=== PATIENT | male | born 1950 | race Caucasian/White ===

== ENCOUNTER 2023-07-23 22:00 | Emergency (ER) | payer OTHER, SELFPAY ==
[2023-07-23 22:02] VITALS: BP 180/107; PULSE 90; RESP 14; TEMP 37.1; O2SAT 96; BMI 26.2
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
--- NOTE | 2023-07-23 22:05 | ECG_ITS ---
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 Measurements Intervals [place] Rate: 86 P: 56 ME: 160 QRS: 48 QRSD: 90 T: 34 QT: 365 QTc: 437 Interpretive Statements SINUS RHYTHM No previous ECG available for comparison Electronically Signed On 07-24-2023 8:30:59 CDT by Jeffery Gorman M.D. [email or web address]
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
[2023-07-23 22:20] LABS: Basophils % 0.1 %; Eosinophils % 0.1 %; Hematocrit 47.4 % (37-53); Lymphocytes # 0.6 10^3/uL (0.8-4.8); Lymphocytes % 4.5 %; Mean Corpuscular HGB Conc 32.1 g/dL (30-55); Mean Corpuscular Hemoglobin 26.1 pg (27-33); Mean Corpuscular Volume 81.4 fl (82-101); Monocytes # 0.8 10^3/uL (0.2-0.9); Monocytes % 5.6 %; Neutrophils # 12.16 10^3/uL (1.8-7.7); Nucleated Red Blood Cells % 0 %; Platelet Count 113 10^3/cmm (157-399); Red Blood Count 5.82 10^6/uL (3.85-5.65); Red Cell Distribution Width 18.6 % (12.1-15.1); White Blood Count 13.67 10^3/uL (3.29-11.43)
[2023-07-23] MEDS: lactated ringers 1,000 ML 999 ML IV (22:36)
[2023-07-23] MEDS: ondansetron 2 mg/ML SDV 2 mL 4 MG IVP (22:36)
[2023-07-23 22:37] LABS: Alanine Aminotransferase 19 U/L (0-41); Albumin Level 4.2 g/dL (3.5-5.2); Alcohol Level < 10 mg/dL (0-10); Alkaline Phosphatase 69 U/L (40-130); Anion Gap 11.8 (5-19); Aspartate Amino Transferase 27 U/L (0-40); Blood Urea Nitrogen 17 mg/dL (8-23); Calcium 9.5 mg/dL (8.5-10.5); Carbon Dioxide 25 mmol/L (22-29); Chloride 104 mmol/L (98-107); Creatinine Clr Calc Pharmacy 87.3054; Globulin 3.1 g/dL (1.3-4.6); Glucose 132 mg/dL (65-115); Osmolality Calculated 287 mOsm/kg (285-295); Potassium 3.8 mmol/L (3.5-5.1); Sodium 137 mmol/L (136-145); Total Bilirubin 0.4 mg/dL (0.15-1.2); Total Protein 7.3 g/dL (6.6-8.7)
[2023-07-23] MEDS: fentaNYL 50 mcg/mL INJ 2mL 75 MCG IVP (22:49)
[2023-07-23 22:56] VITALS: BP 156/105; PULSE 89; RESP 16; O2SAT 92
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
[2023-07-24 00:44] VITALS: BP 126/77; PULSE 74; RESP 16; O2SAT 94
[2023-07-24 00:46] VITALS: BP 126/77; PULSE 74; RESP 16; TEMP 37.1; O2SAT 94
== END 2023-07-24 00:47 | disposition home or self-care (01) ==
PROVIDERS: Emergency Provider Emergency Medicine
DX: S12.191A Other nondisplaced fracture of second cervical vertebra, initial encounter for closed fracture (principal); S40.012A Contusion of left shoulder, initial encounter; V84.5XXA Driver of special agricultural vehicle injured in nontraffic accident, initial encounter
CPT/HCPCS: 70450; 71045; 72125; 73030; 80053; 80307; 85025; 93005; 96361; 96374; 96375; 99285; J2405; J3010; J7120

== ENCOUNTER 2024-06-03 15:30 | Oncology outpatient (recurring) (ONCR) | payer OTHER, SELFPAY ==
[2024-06-03 16:15] LABS: Basophils % 0.6 %; Eosinophils # 0.1 10^3/uL (0.0-0.8); Eosinophils % 1.9 %; Hematocrit 30.3 % (37-53); Lymphocytes # 2.6 10^3/uL (0.8-4.8); Lymphocytes % 35.7 %; Mean Corpuscular HGB Conc 26.4 g/dL (30-55); Mean Corpuscular Hemoglobin 17.8 pg (27-33); Mean Corpuscular Volume 67.5 fl (82-101); Monocytes # 0.5 10^3/uL (0.2-0.9); Monocytes % 7.2 %; Neutrophils # 3.93 10^3/uL (1.8-7.7); Neutrophils % 54.5 %; Nucleated Red Blood Cells % 0 %; Platelet Count 192 10^3/cmm (157-399); Red Blood Count 4.49 10^6/uL (3.85-5.65); Red Cell Distribution Width 19.9 % (12.1-15.1); White Blood Count 7.22 10^3/uL (3.29-11.43)
[2024-06-03 16:33] LABS: Slide Review Slide Review Perform
[2024-06-03 16:40] LABS: Alanine Aminotransferase 9 U/L (0-41); Albumin Level 3.9 g/dL (3.5-5.2); Alkaline Phosphatase 52 U/L (40-130); Anion Gap 14.9 (5-19); Aspartate Amino Transferase 14 U/L (0-40); Blood Urea Nitrogen 19 mg/dL (8-23); Calcium 9.1 mg/dL (8.5-10.5); Carbon Dioxide 23 mmol/L (22-29); Chloride 104 mmol/L (98-107); Creatinine Clr Calc Pharmacy 83.9462; Ferritin 10 ng/mL (30-400); Globulin 2.9 g/dL (1.3-4.6); Glucose 95 mg/dL (65-115); Iron 9 ug/dL (59-158); Lactate Dehydrogenase 150 U/L (135-225); Osmolality Calculated 288 mOsm/kg (285-295); Percent Saturation 2.3 % (20-50); Potassium 3.9 mmol/L (3.5-5.1); Sodium 138 mmol/L (136-145); Total Bilirubin 0.2 mg/dL (0.15-1.2); Total Iron Binding Capacity 384 mcg/dl; Total Protein 6.8 g/dL (6.6-8.7); Unsaturated Iron Binding 375 ug/dL (112-347)
[2024-06-03 16:56] LABS: Vitamin B12 486 pg/mL (232-1245)
== END 2024-06-05 23:59 | disposition home or self-care (01) ==
PROVIDERS: PCP Family Medicine; Visit Provider Internal Medicine Medical Oncology
DX: D61.9 Aplastic anemia, unspecified (principal)
CPT/HCPCS: 36415; 80053; 82607; 82728; 82746; 83540; 83550; 83615; 85025; 99205

== ENCOUNTER 2024-06-12 14:41 | Oncology outpatient (recurring) (ONCR) | payer OTHER, SELFPAY ==
[2024-06-12] MEDS: ferric derisomaltose 1,000 MG in sodium chloride 0.9% (100 ml) 100 ML 330 MG IV (16:18)
[2024-06-12 16:52] VITALS: BP 151/81; PULSE 63; RESP 16; TEMP 35.9; O2SAT 98
== END 2024-07-06 23:59 | disposition home or self-care (01) ==
LOC: ONCMED 14:41
PROVIDERS: PCP Family Medicine; Visit Provider Internal Medicine Medical Oncology
DX: D50.9 Iron deficiency anemia, unspecified (principal); Z79.899 Other long term (current) drug therapy
CPT/HCPCS: 96365; J1437

== ENCOUNTER 2024-07-09 11:55 | Oncology outpatient (recurring) (ONCR) | payer OTHER, SELFPAY ==
[2024-07-09 12:23] LABS: Basophils % 0.4 %; Eosinophils # 0.1 10^3/uL (0.0-0.8); Eosinophils % 2.1 %; Hematocrit 39.4 % (37-53); Lymphocytes # 2.3 10^3/uL (0.8-4.8); Lymphocytes % 42.9 %; Mean Corpuscular HGB Conc 27.9 g/dL (30-55); Mean Corpuscular Hemoglobin 20.8 pg (27-33); Mean Corpuscular Volume 74.3 fl (82-101); Monocytes # 0.4 10^3/uL (0.2-0.9); Monocytes % 8.1 %; Neutrophils # 2.45 10^3/uL (1.8-7.7); Neutrophils % 46.3 %; Nucleated Red Blood Cells % 0 %; Platelet Count 150 10^3/cmm (157-399); Red Cell Distribution Width 26.8 % (12.1-15.1); White Blood Count 5.29 10^3/uL (3.29-11.43)
[2024-07-09 12:57] LABS: Alanine Aminotransferase 11 U/L (0-41); Alkaline Phosphatase 64 U/L (40-130); Anion Gap 14.2 (5-19); Aspartate Amino Transferase 18 U/L (0-40); Blood Urea Nitrogen 20 mg/dL (8-23); Calcium 9.4 mg/dL (8.5-10.5); Carbon Dioxide 21 mmol/L (22-29); Chloride 107 mmol/L (98-107); Ferritin 35 ng/mL (30-400); Globulin 2.9 g/dL (1.3-4.6); Glucose 105 mg/dL (65-115); Iron 78 ug/dL (59-158); Osmolality Calculated 289 mOsm/kg (285-295); Potassium 4.2 mmol/L (3.5-5.1); Sodium 138 mmol/L (136-145); Total Bilirubin 0.2 mg/dL (0.15-1.2); Total Iron Binding Capacity 354 mcg/dl; Total Protein 6.9 g/dL (6.6-8.7); Unsaturated Iron Binding 276 ug/dL (112-347)
== END 2024-08-05 23:59 | disposition home or self-care (01) ==
PROVIDERS: PCP Family Medicine; Visit Provider Internal Medicine Medical Oncology
DX: D50.9 Iron deficiency anemia, unspecified (principal); R03.0 Elevated blood-pressure reading, without diagnosis of hypertension; Z79.899 Other long term (current) drug therapy; D61.9 Aplastic anemia, unspecified
CPT/HCPCS: 36415; 80053; 82728; 83540; 83550; 85025; 99214

== ENCOUNTER 2024-09-10 12:48 | Oncology outpatient (recurring) (ONCR) | payer OTHER, SELFPAY ==
[2024-09-10 13:39] LABS: Hematocrit 40.4 % (37-53); Hemoglobin 12.40 g/dL (11.27-16.99); Mean Corpuscular HGB Conc 30.7 g/dL (30-55); Mean Corpuscular Hemoglobin 24.2 pg (27-33); Mean Corpuscular Volume 78.8 fl (82-101); Nucleated Red Blood Cells % 0 %; Platelet Count 167 10^3/cmm (157-399); Red Blood Count 5.13 10^6/uL (3.85-5.65); White Blood Count 7.90 10^3/uL (3.29-11.43)
[2024-09-10 13:50] LABS: Alanine Aminotransferase 12 U/L (0-41); Albumin Level 3.5 g/dL (3.5-5.2); Alkaline Phosphatase 76 U/L (40-130); Anion Gap 12.9 (5-19); Aspartate Amino Transferase 18 U/L (0-40); Blood Urea Nitrogen 18 mg/dL (8-23); Calcium 9.5 mg/dL (8.5-10.5); Carbon Dioxide 24 mmol/L (22-29); Chloride 107 mmol/L (98-107); Creatinine Clr Calc Pharmacy 85.5587; Globulin 3.5 g/dL (1.3-4.6); Glucose 109 mg/dL (65-115); Osmolality Calculated 292 mOsm/kg (285-295); Potassium 3.9 mmol/L (3.5-5.1); Sodium 140 mmol/L (136-145); Total Protein 7.0 g/dL (6.6-8.7)
[2024-09-10 19:22] LABS: Ferritin 25 ng/mL (30-400); Iron 30 ug/dL (59-158); Total Iron Binding Capacity 291 mcg/dl; Unsaturated Iron Binding 261 ug/dL (112-347)
[2024-09-11 02:22] LABS: Vitamin B12 1228 pg/mL (232-1245)
== END 2024-10-06 23:59 | disposition home or self-care (01) ==
PROVIDERS: PCP Family Medicine; Visit Provider Internal Medicine Medical Oncology
DX: D50.9 Iron deficiency anemia, unspecified (principal); R03.0 Elevated blood-pressure reading, without diagnosis of hypertension; Z79.899 Other long term (current) drug therapy; D61.9 Aplastic anemia, unspecified
CPT/HCPCS: 36415; 80053; 82607; 82728; 82746; 83540; 83550; 85025; 99214

== ENCOUNTER 2024-12-10 11:07 | Oncology outpatient (recurring) (ONCR) | payer OTHER, SELFPAY ==
[2024-12-10 11:41] LABS: Hematocrit 41.3 % (37-53); Hemoglobin 12.50 g/dL (11.27-16.99); Mean Corpuscular HGB Conc 30.3 g/dL (30-55); Mean Corpuscular Hemoglobin 24.0 pg (27-33); Mean Corpuscular Volume 79.4 fl (82-101); Nucleated Red Blood Cells % 0 %; Platelet Count 157 10^3/cmm (157-399); Red Blood Count 5.20 10^6/uL (3.85-5.65); White Blood Count 6.08 10^3/uL (3.29-11.43)
[2024-12-10 11:57] LABS: Slide Review Slide Review Perform
[2024-12-10 12:06] LABS: Alanine Aminotransferase 13 U/L (0-41); Albumin Level 4.0 g/dL (3.5-5.2); Alkaline Phosphatase 61 U/L (40-130); Anion Gap 14.2 (5-19); Aspartate Amino Transferase 18 U/L (0-40); Blood Urea Nitrogen 18 mg/dL (8-23); Calcium 9.0 mg/dL (8.5-10.5); Carbon Dioxide 23 mmol/L (22-29); Chloride 106 mmol/L (98-107); Ferritin 17 ng/mL (30-400); Globulin 3.1 g/dL (1.3-4.6); Glucose 87 mg/dL (65-115); Iron 231 ug/dL (59-158); Osmolality Calculated 289 mOsm/kg (285-295); Potassium 4.2 mmol/L (3.5-5.1); Sodium 139 mmol/L (136-145); Total Iron Binding Capacity 344 mcg/dl; Total Protein 7.1 g/dL (6.6-8.7); Unsaturated Iron Binding 113 ug/dL (112-347)
== END 2025-01-05 23:59 | disposition home or self-care (01) ==
PROVIDERS: Nurse Practitioner; PCP Family Medicine; Visit Provider Internal Medicine Medical Oncology
DX: D50.9 Iron deficiency anemia, unspecified (principal); D61.9 Aplastic anemia, unspecified
CPT/HCPCS: 36415; 80053; 82728; 83540; 83550; 83615; 85025; 99213